=== PATIENT | female | born 1995 | race Caucasian/White ===

== ENCOUNTER 2017-10-29 17:49 | Day surgery (SDC) | payer BC ==
[~2017-10-29] VITALS: Ht 157.5 cm; Wt 62.7 kg
[2017-10-29] MEDS ORDERED: TRINESSA 281 TAB (17:59)
[2017-10-29 18:34] LABS: COLLECTION METHOD CLEAN CATCH
[2017-10-29 18:36] LABS: BASO % 0.2 % (0.0-2.0); EOS # 0.1 (0.0-0.7); EOS % 0.4 % (0-4.0); GRAN % 70.2 % (42.2-75.2); HEMATOCRIT 40.9 % (37.0-47.0); HEMOGLOBIN 13.3 g/dl (12.5-16.0); LYMPH # 2.9 (1.2-3.4); LYMPH % 20.3 % (20.0-51.0); MEAN CELL VOLUME 90 fl (80.0-100.0); MEAN CORPUSCULAR HEMOGLOBIN 29 pg (27.0-31.0); MEAN CORPUSCULAR HGB CONC 33 g/dl (33.0-37.0); MEAN PLATELET VOLUME 9.2 fl (7.4-10.4); MONO # 1.2 (0.1-0.6); MONO % 8.6 % (1.7-9.3); PLATELET COUNT 250 K/mm3 (130-400); RED BLOOD COUNT 4.54 M/mm3 (4.10-5.30); REDCELL DISTRIBUTION WIDTH-CV 12.5 % (11.5-14.5)
[2017-10-29 18:41] LABS: MUCOUS Present /lpf; PH 6 (5-8); SQUAMOUS EPITHELIAL 0-2 /hpf; URINE APPEARANCE Clear; URINE BACTERIA Rare /hpf; URINE BILIRUBIN Negative (NEGATIVE); URINE BLOOD Negative (NEGATIVE); URINE COLOR Yellow; URINE GLUCOSE Negative (NEGATIVE); URINE KETONE Negative (NEGATIVE); URINE LEUKOCYTE ESTERASE Negative (NEGATIVE); URINE NITRATE Negative (NEGATIVE); URINE PROTEIN(semi-quant) Negative (NEGATIVE); URINE RBC 0-2 /hpf; URINE UROBILINOGEN Negative (NEGATIVE)
[2017-10-29 18:49] LABS: ALBUMIN 4.1 gm/dL (3.5-5.0); BILIRUBIN,TOTAL 0.5 mg/dL (0.0-1.0); C-REACTIVE PROTEIN 2.3 mg/dL (0.0-0.9); CALCIUM 9.5 mg/dL (8.4-10.2); CREATININE, serum 0.67 mg/dL (0.52-1.25); POTASSIUM 3.9 mmol/L (3.4-5.0); TOTAL PROTEIN 7.3 gm/dL (6.4-8.2)
[2017-10-29 23:02] VITALS: BP 104/53; PULSE 54
[2017-10-29 23:17] VITALS: BP 101/58; PULSE 57
[2017-10-29 23:32] VITALS: BP 101/58; PULSE 55
[2017-10-29 23:47] VITALS: BP 104/55; PULSE 57
[2017-10-30] VITALS (7 sets, daily range): BP systolic 86–110; BP diastolic 49–62; PULSE 52–67; TEMP 98.2–98.4
[2017-10-30] MEDS ORDERED: NORCO 325 MG-51 TAB PO (08:48)
== END 2017-10-30 11:00 | disposition home or self-care (01) ==
LOC: COL.ER 17:49 → SDCO 20:35 → JCC 20:36 → COL.ER 21:10 → SDCO 10-30 11:00
PROVIDERS: Family Medicine
DX: K35.80 Unspecified acute appendicitis (principal)
CPT/HCPCS: OP; J1100; J1885; J2250; J2405; J2550; J2704; J3010; J7030; Q9967